=== PATIENT | male | born 2005 | race Caucasian/White ===

== ENCOUNTER 2023-07-11 19:06 | Emergency (ER) | payer SELFPAY ==
[2023-07-11 19:11] VITALS: BP 157/57; PULSE 71; RESP 18; TEMP 98; BMI 26.2
[2023-07-11] MEDS ORDERED: ACETAMINOPHEN 1000 MG/100 ML BAG IVPB ONE (20:03)
[2023-07-11] MEDS ORDERED: ACETAMINOPHEN INJECTION 100 ML IVPB ONE (20:22)
[2023-07-11 20:39] LABS: BASO % 0.4 % (0-2.0); EOS % 0.6 % (0-4.5); HEMATOCRIT 41.7 % (35.4-49); HEMOGLOBIN 14.4 GM/dL (11.7-16.9); LYMPH % 24.8 % (8-40); MCH 31.9 pg (25.7-33.7); MCHC 34.6 g/dl (32.0-35.9); MEAN CELL VOLUME 92.1 fl (80-96); MEAN PLT VOLUME 8.2 fl (7.5-11.1); MONO % 9.4 % (3.8-10.2); NEUT % 64.8 % (42.8-82.8); PLATELET COUNT 193 10^3/uL (134-434); RBC 4.53 M/mm3 (4.00-5.60); RDW 13.3 % (11.9-15.9); WHITE BLOOD COUNT 7.5 K/mm3 (4.0-10.0)
[2023-07-11 20:50] LABS: INR 1.14 (0.83-1.09); PROTHROMBIN TIME (PATIENT) 13.2 SEC (9.7-13.0)
[2023-07-11 20:53] LABS: ACTIVATED PTT 28.9 SECONDS (25.2-36.5)
[2023-07-11 20:58] LABS: POTASSIUM 4.1 mmol/L (3.5-5.1)
[2023-07-11 21:00] LABS: ALBUMIN 4.4 g/dl (3.4-5.0); CALCIUM 9.5 mg/dL (8.5-10.1)
[2023-07-11 21:01] LABS: BLOOD UREA NITROGEN 20.3 mg/dL (7-18)
[2023-07-11 21:03] LABS: CREATININE 1.1 mg/dL (0.55-1.3)
[2023-07-11 21:05] LABS: BILIRUBIN,TOTAL 0.6 mg/dL (0.2-1); TOT PROT 7.5 g/dl (6.4-8.2)
== END 2023-07-11 21:48 | disposition home or self-care (01) ==
LOC: JER 19:06
PROC: 3E033NZ Introduction of Analgesics, Hypnotics, Sedatives into Peripheral Vein, Percutaneous Approach (ICD-10-PCS; principal; 2023-07-11)
DX: S02.2XXA Fracture of nasal bones, initial encounter for closed fracture (principal); R42 Dizziness and giddiness; Y00.XXXA Assault by blunt object, initial encounter; Y92.9 Unspecified place or not applicable
CPT/HCPCS: 36415; 70450-TC; 70486-TC; 80053; 85025; 85610; 85730; 86850; 86900; 86901; 99284-25